=== PATIENT | male | born 1985 | race African-American/Black ===

== ENCOUNTER 2017-07-01 11:48 | Emergency (ER) | payer OTHER | END 2017-07-01 14:30 | disposition home or self-care (01) | LOC: E/R 14:30 | DX: B49 Unspecified mycosis (principal); B02.9 Zoster without complications; F17.210 Nicotine dependence, cigarettes, uncomplicated | CPT/HCPCS: 99283; Z7502 ==

== ENCOUNTER 2017-07-14 16:37 | Emergency (ER) | payer OTHER | END 2017-07-14 18:09 | disposition home or self-care (01) | LOC: E/R 18:09 | DX: B02.9 Zoster without complications (principal); F17.210 Nicotine dependence, cigarettes, uncomplicated | CPT/HCPCS: 99284; Z7502 ==

== ENCOUNTER 2017-08-17 09:03 | Emergency (ER) | payer OTHER | END 2017-08-17 10:38 | disposition home or self-care (01) | LOC: E/R 09:03 | DX: B02.9 Zoster without complications (principal); F17.210 Nicotine dependence, cigarettes, uncomplicated | CPT/HCPCS: 99284; Z7502 ==

== ENCOUNTER 2017-09-16 22:34 | Emergency (ER) | payer OTHER | END 2017-09-17 05:36 | disposition home or self-care (01) | LOC: FTE 22:34 | DX: B02.29 Other postherpetic nervous system involvement (principal); F17.210 Nicotine dependence, cigarettes, uncomplicated | CPT/HCPCS: 99281; Z7502 ==

== ENCOUNTER 2017-11-13 12:28 | Emergency (ER) | payer OTHER | END 2017-11-13 13:25 | disposition home or self-care (01) | LOC: E/R 12:28 | DX: B02.22 Postherpetic trigeminal neuralgia (principal); F17.210 Nicotine dependence, cigarettes, uncomplicated | CPT/HCPCS: 99283; Z7502 ==